=== PATIENT | female | born 2000 | race Caucasian/White ===

== ENCOUNTER 2021-04-07 12:52 | Outpatient (CLI) | payer BC, SELFPAY ==
[2021-04-07 14:27] LABS: SARS-CoV-2 Ag Negative (Negative)
== END 2021-04-07 12:53 | disposition home or self-care (01) ==
LOC: CHSLAB 12:58
PROVIDERS: PCP Nurse Practitioner Family; Visit Provider Physician Assistant
DX: Z20.822 Contact with and (suspected) exposure to COVID-19 (principal)
CPT/HCPCS: 87426; C9803

== ENCOUNTER 2021-06-02 13:34 | Outpatient (CLI) | payer BC, SELFPAY ==
--- NOTE | ~2021-06-02 | XR_ITS ---
EXAMINATION: XR ankle LT min 3V DATE: 06/02/2021 14:09 INDICATION: Left ankle pain. TECHNIQUE: 4 views of left ankle were obtained. COMPARISON: None. FINDINGS: Bone alignment is normal. No fracture. Joint spaces are well maintained. There is ankle sof t tissue swelling. IMPRESSION: 1. No fracture. Reviewed, dictated and finalized at location A. IMPRESSION: 1. No fracture.
== END 2021-06-02 13:35 | disposition home or self-care (01) ==
LOC: CHSIMG 13:39
DX: M25.572 Pain in left ankle and joints of left foot (principal)
CPT/HCPCS: 73610